=== PATIENT | female | born 1990 | race African-American/Black ===

== ENCOUNTER 2018-07-15 20:53 | Emergency (ER) | payer MEDICAID ==
[~2018-07-15] VITALS: Ht 167.6 cm; Wt 59.0 kg
[2018-07-15] MEDS ORDERED: ACETAMINOPHEN WITH CODEINE 300/30MG TABLET PO ONE (23:00)
[2018-07-16 01:01] VITALS: BP 120/76
== END 2018-07-16 01:06 | disposition home or self-care (01) ==
LOC: ER 20:53
DX: M79.18 Myalgia, other site (principal); V43.52XA Car driver injured in collision with other type car in traffic accident, initial encounter; Z88.2 Allergy status to sulfonamides; Y93.89 Activity, other specified; Y92.410 Unspecified street and highway as the place of occurrence of the external cause
CPT/HCPCS: 73030; 99284